=== PATIENT | female | born 1995 | race Caucasian/White ===

== ENCOUNTER 2016-05-17 23:28 | Emergency (ER) | payer BC ==
[2016-05-17 23:29] VITALS: BP 149/100; PULSE 79; RESP 20; TEMP 97.8; O2SAT 98
--- NOTE | 2016-05-18 00:19 | PD ---
HPI Chief Complaint: Suicide Ideation/Attempt Time Seen by Provider: 00:14 Travel History International Travel<30 days: No Contact w/Intl Traveler<30days: No Traveled to known affect area: No History of Present Illness HPI 21-year-old white female with a history of bipolar and substance abuse presents to emergency department for psychological evaluation. She states that she is currently homeless. She had just gotten kicked out of her apartment for not pain the rent. She states that she had come to the area and had been living in a sober living facility that had gotten her own apartment. She states that she started using drugs again and has lost her money. The patient admit to multiple polysubstances. She states that she smoked crack and use heroin yesterday. She feels increasingly depressed. She has been off her psych meds. She states that she thinks of suicide on a daily basis. She is concerned that she will harm herself due to her substance abuse. She performed superficial cutting to her left wrist a few days ago. The patient here denies any active plan on self-harm. No homicidal ideation. She states that she feels very anxious and has problems with her memory. Nausea and feels very shaky. She states that she feels this way when she starts having withdrawal. She denies any other medical complaints. Last period last month. PFSH Past Medical History Narrative Medical Ectopic , Bipolar disorder, polysubstance abuse Tetanus Vaccination: < 5 Years ?: Unknown LMP: MONTH AGO Past Surgical History Narrative Surgical Left ectopic Social History Alcohol Use: Yes Tobacco Use: Yes Substance Use: Yes Allergies-Medications (Allergen,Severity, Reaction): Coded Allergies: No Known Allergies (Unverified , 05/17/16) Reported Meds & Prescriptions Reported Meds & Active Scripts Active Reported Ativan (Lorazepam) 1 Mg Tab 1 Mg PO Q6H PRN Trazodone (Trazodone HCl) 100 Mg Tab 100 Mg PO HS Zoloft (Sertraline HCl) 50 Mg Tab 50 Mg PO DAILY Topamax (Topiramate) 25 Mg Tab Unknown Dose PO BID Review of Systems Except as stated in HPI: all other systems reviewed are Neg General / Constitutional: No: Fever, Chills Eyes: No: Diploplia, Blurred Vision HENT: No: Headaches, Lightheadedness Cardiovascular: No: Chest Pain or Discomfort, Palpitations Respiratory: No: Cough, Shortness of Breath Gastrointestinal: Positive: Nausea, No: Vomiting, Abdominal Pain Genitourinary: No: Frequency, Dysuria Musculoskeletal: No: Myalgias, Arthralgias Skin: No Rash, No Dryness Neurologic: Positive: Change in Mentation, No: Weakness Psychiatric: Positive: Anxiety, Depression, Suicidal Ideations, Disorder of Thought, Mood Disorder, Substance Abuse, No: Homicidal Ideation Physical Exam Narrative GENERAL: Well-nourished, well-developed patient. SKIN: Warm and dry. Patient has track sr on both forearms. She has healing suicide gesture cutting to the left wrist. HEAD: Normocephalic and atraumatic. EYES: No scleral icterus. No injection or drainage. ENT: No nasal drainage noted. Mucous membranes pink. Airway patent. NECK: Supple, trachea midline. Moves head freely without obvious discomfort. CARDIOVASCULAR: Regular rate and rhythm without murmurs, gallops, or rubs. RESPIRATORY: Breath sounds equal bilaterally. No accessory muscle use. GASTROINTESTINAL: Abdomen soft, non-tender, nondistended. EXTREMITIES: No cyanosis or edema. BACK: Nontender without obvious deformity. No CVA tenderness. NEURO: Patient is alert and oriented. no sensorimotor deficits. Nonfocal. Normal speech. PSYCH: No delusions. The patient states that she's hearing and seeing things that are not there.. Data Data Last Documented VS Vital Signs Date Time Temp Pulse Resp B/P Pulse Ox O2 Delivery O2 Flow Rate FiO2 05/17/16 23:29 97.8 79 20 149/100 98 Room Air Orders Psych Screen (05/18/16 00:13) Ed Urine Pregnancytest Poc (05/18/16 00:56) [facility] Medical Decision Making Medical Screen Exam Complete: Yes Emergency Medical Condition: Yes Medical Record Reviewed: Yes Differential Diagnosis MDM: High Differential diagnoses: Schizophrenia, schizoaffective disorder, bipolar, anxiety, depression, adjustment reaction, mood disorder NOS, ODD, depressive disorder NOS, dementia, dementia with agitation, psychosis NOS, substance induced mood disorder, intermittent explosive disorder, Asperger syndrome, infection,electrolyte abnormality, malingering. Narrative Course Mental health screening discussed with the patient. Psychiatric screen ordered. The patient is been medically cleared. The psych screener has evaluated the patient. She'll be transferred to [email or web address] for further evaluation and treatment. This is bipolar disorder, polysubstance abuse Diagnosis Primary Impression: Bipolar 1 disorder Additional Impression: Polysubstance abuse Med/Other Pt SpecificInfo: No Meds Exist/No RX given Disposition: 65 DISC TO PSYCH CARE FACILITY Condition: Stable Jonny Irving May 18, 2016 00:19
[2016-05-18] MEDS ORDERED: LORA-474 PO (00:30)
[2016-05-18] MEDS ORDERED: ZOLO50TA PO (00:30)
[2016-05-18] MEDS ORDERED: TRAZ100T4 PO (00:30)
[2016-05-18] MEDS ORDERED: TOPA25TA8 PO (00:30)
== END 2016-05-18 02:02 ==
LOC: NEPB 23:28
DX: F31.9 Bipolar disorder, unspecified (principal); F19.10 Other psychoactive substance abuse, uncomplicated; R11.0 Nausea; Z72.0 Tobacco use; Z59.0 Homelessness; Z86.59 Personal history of other mental and behavioral disorders; Z87.42 Personal history of other diseases of the female genital tract
CPT/HCPCS: 84703; 99285